=== PATIENT | female | born 1985 ===

== ENCOUNTER → 2018-01-31 | Outpatient (CLI) | payer OTHER ==
--- NOTE | 2018-01-31 11:09 | Ultrasound Report ---
ULTRASOUND ABDOMEN COMPLETE ULTRASOUND PELVIC LIMITED INDICATION: Other microscopic hematuria. COMPARISON: None similar. FINDINGS: Abdominal sonography demonstrates slight diffuse hepatic coarsening. Grossly preserved contours without focal suspicious lesions or biliary dilatation. No gallstones, pericholecystic fluid or positive sonographic Hamilton's sign. Gallbladder wall thickness is 2.6 mm. CBD caliber is 1.8 mm. Homogenous spleen, 11.4 cm in length. No ascites. Normal visualized pancreas, though head and tail partly obscured due to bowel gas. Normal IVC. Nonaneurysmal abdominal aorta. No hydronephrosis. Right kidney is 10.3 x 4.5 x 4.9 cm with cortical thickness of 0.9 cm. Left kidney estimated at 2.5 x 4.5 x 6 cm with cortical thickness of 1.4 cm. Limited pelvic sonography demonstrates well distended, unremarkable urinary bladder. CONCLUSION: No acute sonographic abnormality, as described. Thank you for the opportunity to participate in this patient's care.
== END | disposition home or self-care (01) ==
LOC: US 09:08
PROVIDERS: ATTEND Nurse Practitioner Family
DX: R31.29 Other microscopic hematuria (principal)
CPT/HCPCS: 76700; 76857

== ENCOUNTER 2019-01-09 18:27 | Inpatient (IN) | payer OTHER, MEDICAID ==
[2019-01-09] MEDS ORDERED: BICITRA PO ONE (18:40)
[2019-01-09] MEDS ORDERED: REGLAN IV ONE (18:40)
[2019-01-09] MEDS ORDERED: PEPCID IV ONE (18:40)
--- NOTE | 2019-01-09 18:46 | History and Physical Report ---
History of Present Illness Date of examination: 01/09/19 Date of admission: 01/09/19 18:27 Chief complaint: Repeat C Section History of present illness: Pt is a 33yo BF EDC 01/12/19; EGA 39 4/7 weeks presents for a Repeat C Section. She received care at [facility] since 11 weeks and co-managed by [facility] for Previous C Section and AMA. records are available and GBS is Negative. Past History Past Medical History: no pertinent history Past Surgical History: section Social history: no significant social history, - Obstetrical History Expected Date of Delivery: 01/12/19 Actual Gestation: 39 Week(s) 4 Day(s) Medications and Allergies Home Medications Medication Instructions Recorded Confirmed Last Taken Type Ferrous Sulfate [Feosol 325 MG tab] 325 mg PO BID #60 tablet 01/09/19 Unknown Rx HYDROcodone/APAP 5-325 [[place] 1 each PO Q6HR PRN #30 tablet 01/09/19 Unknown Rx 5/325] Ibuprofen [Motrin] 800 mg PO Q8HR PRN #30 tablet 01/09/19 Unknown Rx Vit-Fe Fumar-FA [ 1 tab PO QDAY #30 tablet 01/09/19 Unknown Rx Vitamin] Review of Systems All systems: negative - Physical Exam Breasts: Positive: deferred Cardiovascular: Regular rate Lungs: Positive: Clear to auscultation Abdomen: Positive: normal appearance Genitourinary (Female): Positive: normal external genitalia Vagina: Positive: normal moisture Uterus: Positive: enlarged Extremities: Positive: normal - Obstetrical FHR: category 1 Uterine Contraction Monitor Mode: External Uterine Contraction Pattern: Absent Results Result Diagrams: 01/09/19 20:11 All other labs normal. Assessment and Plan - Patient Problems (1) 39 weeks gestation of Onset Date: 01/09/19 Current Visit: Yes Status: Acute Plan to address problem: A: IUP @ 39 5/7 weeks Previous C Section P: Admit to L&D for Repeat C Section. (2) Previous delivery affecting Onset Date: 01/09/19 Current Visit: Yes Status: Acute
[2019-01-09] MEDS ORDERED: LACTATED RINGERS 1,000 ML IV SCH (19:00)
[2019-01-09] MEDS ORDERED: PITOCin/NS 20 UNIT/1000ML DRIP 20 UNITS/1,000 ML BAG IV SCH ×2 (19:00→23:00)
[2019-01-09] MEDS ORDERED: ANCEF/STERILE WATER 2 GM/20 ML 2 GM/20 ML SYRINGE IV NR (19:00)
--- NOTE | 2019-01-09 19:38 | Anesthesia Consultation ---
Anesthesia Consult and Med Hx Date of service: 01/09/19 - Airway ROM Head & Neck: Adequate Mental/Hyoid Distance: Adequate Mallampati Class: Class II Intubation Access Assessment: Probably Good - Pulmonary Exam CTA: Yes - Cardiac Exam Cardiac Exam: RRR - Pre-Operative Health Status ASA Pre-Surgery Classification: ASA2 Proposed Anesthetic Plan: Spinal - Pulmonary Hx Asthma: No - Cardiovascular System Hx Hypertension: No
--- NOTE | 2019-01-09 19:38 | Anesthesia Day of Surgery ---
Anesthesia Day of Surgery - Day of Surgery Patient Examined: Yes Patient H&P Reviewed: Yes Patient is NPO: Yes
[2019-01-09] MEDS ORDERED: MARCAINE 0.5% INFILTRATI ONE (19:44)
[2019-01-09] MEDS ORDERED: DEXMEDETOMIDINE IV ONE (19:44)
[2019-01-09 20:33] LABS: Basophils % (Auto) 0.1 % (0.0-1.8); Eosinophils % (Auto) 0.2 % (0.0-4.3); Hematocrit 35.3 % (30.3-42.9); Hemoglobin 11.6 gm/dl (10.1-14.3); Lymphocytes # (Auto) 1.2 K/mm3 (1.2-5.4); Lymphocytes % (Auto) 12.2 % (13.4-35.0); Mean Corpuscular HGB Conc 33 % (30-34); Mean Corpuscular Volume 75 fl (79-97); Monocytes # (Auto) 0.5 K/mm3 (0.0-0.8); Monocytes % (Auto) 5.4 % (0.0-7.3); Platelet Count 252 K/mm3 (140-440); Red Blood Count 4.69 M/mm3 (3.65-5.03); Red Cell Distribution Width 17.6 % (13.2-15.2)
[2019-01-09] MEDS ORDERED: NEO SYNEPHRINE ONE (21:08)
[2019-01-09] MEDS ORDERED: ZOFRAN ONE (21:08)
[2019-01-09] MEDS ORDERED: WATER FOR IRRIG STERILE IR ONE (21:12)
[2019-01-09] MEDS ORDERED: NACL 0.9% IR ONE (21:12)
[2019-01-09] MEDS ORDERED: LACTATED RINGERS 1,000 ML ONE (21:33)
--- NOTE | 2019-01-09 22:15 | Operative Report ---
Operative Report Operative Report: Date of procedure: 01/09/2019 Pre-operative diagnosis: 1. Intrauterine at 39-4/7 weeks 2. Previ ous Post-operative diagnosis: Same Procedure name(s): Repeat low transverse section Surgeon: Karson Ledbetter MD Account Manager Sales Representative: None Anesthesia: Spinal anesthesia by Juan Sunshine CRNA EBL: 500 mL's Findings: A 3459 g male Apgars 8 at 1 minute and 9 at 5 minutes. Clear amniotic fluid. Normal uterus with extensive upper uterine adhesions adherent to the abdominal wall. Normal tubes and ovaries bilaterally. Procedure: After the patient was prepped and draped in usual sterile fashion, and after satisfactory level of epidural anesthesia was obtained, the skin knife was used to make a transverse skin incision through the previous skin scar. The incision was excised down to layer of the fascia, which was nicked in the midline and extended laterally using the Bovie cautery. The rectus muscles were dissected off the rectus fascia both superiorly and inferiorly. The rectus bellies in the midline, and the peritoneum was entered under direct visualization. The peritoneal incision was extended superiorly and inferiorly. A bladder flap was created and the bladder blade was then placed. The uterus was scored in a curvilinear linear fashion, entered in the midline revealing clear amniotic fluid. The infant's head was delivered onto the surgical field, and the oropharynx and nasopharynx were bulb suctioned. The rest of the infant's body was delivered, cord was doubly clamped and cut and the infant was handed to the waiting respiratory team. The placenta was manually removed from the uterus, however the uterus could not be removed from his normal anatomical position due to extensive upper uterine adhesions. After gentle uterine lavage, the incision was inspected and found to be without extensions. It was then closed in 2 layers using 0 Vicryl suture in a running interlocking fashion, the second layer imbricating the first. After good hemostasis was achieved, copious amounts or irrigation was performed, and the gutters were suctioned free of blood and blood clots. The Tisseel sealant was sprayed across the uterine incision. After excellent hemostasis assured, the peritoneum was re- approximated using 3-0 Vicryl suture in a running interlocking fashion, and then the rectus muscles were re-approximated using 3-0 Vicryl suture in a [id number] configuration. The fascia was then re-approximated using 0 Vicryl suture in running interlocking fashion. The subcutaneous layer was made hemostatic using Bovie cautery, the Tisseel sealant was sprayed across the fascial incision and the skin edges re-approximated using 4-0 Vicryl suture in a sub-cuticular fashion. Patient tolerated the procedure well was transported to recovery in stable condition.
[2019-01-09] MEDS ORDERED: LANSINOH TP PRN (22:20)
[2019-01-09] MEDS ORDERED: ZOFRAN IV PRN ×2 (22:20→22:25)
[2019-01-09] MEDS ORDERED: TYLENOL PO PRN (22:20)
[2019-01-09] MEDS ORDERED: SENOKOT PO PRN (22:20)
[2019-01-09] MEDS ORDERED: MILK OF MAGNESIA PO PRN (22:20)
[2019-01-09] MEDS ORDERED: PHENERGAN PR PRN ×2 (22:20→22:25)
[2019-01-09] MEDS ORDERED: NARCAN 0.4 MG/1 ML IV PRN ×2 (22:20→22:25)
[2019-01-09] MEDS ORDERED: MYLICON PO PRN (22:20)
[2019-01-09] MEDS ORDERED: TUCKS PAD TP PRN (22:20)
[2019-01-09] MEDS ORDERED: NORCO 5/325 PO PRN (22:20)
--- NOTE | 2019-01-09 22:23 | Post Anesthesia Evaluation ---
- Post Anesthesia Evaluation Patient Participated: Yes Airway Patent: Yes Stable Respiratory Function: Yes Nausea/Vomiting: No Temp > 96.8F: Yes Pain Manageable: Yes Adequeate Hydration: Yes Anesthesia Complications: No Block Receding Appropriately: Yes
[2019-01-09] MEDS ORDERED: NUBAIN IV PRN (22:25)
[2019-01-09] MEDS ORDERED: PHENERGAN PO PRN (22:25)
[2019-01-09] MEDS ORDERED: DILAUDID IV PRN ×2 (22:25)
[2019-01-09] MEDS ORDERED: D5LR 1,000 ML IV SCH (23:00)
[2019-01-09] MEDS ORDERED: SODIUM CHLORIDE FLUSH SYRINGE 10 ML IV PRN ×2 (23:00)
[2019-01-10] MEDS ORDERED: TORADOL IV SCH
[2019-01-10] MEDS: TORADOL IV PRN ×2 (01:50→12:00)
[2019-01-10] MEDS: ANCEF/NS 1 GM/50 ML 1 GM/50 ML BAG IV SCH ×2 (04:30→11:59)
[2019-01-10] MEDS: PRENATAL VITAMIN PO SCH (09:48)
[2019-01-10] MEDS: FEOSOL PO SCH (09:48)
[2019-01-10] MEDS: TYLENOL PO SCH ×4 (12:20→22:27)
[2019-01-10 14:09] LABS: Hematocrit 33.2 % (30.3-42.9); Hemoglobin 10.9 gm/dl (10.1-14.3)
[2019-01-10] MEDS: PERCOCET 5/325 PO PRN ×2 (16:28→22:21)
--- NOTE | 2019-01-10 17:40 | Progress Note ---
Assessment and Plan - Patient Problems (1) Postcesarean section Current Visit: Yes Status: Acute Plan to address problem: Continue observation and pain control. Subjective - Subjective Date of service: 01/10/19 Principal diagnosis: delivery Interval history: S/P day 1. Patient reports: appetite normal, voiding normally, pain well controlled, flatus, no dizzy ambulation, no appetite poor, no nauseated Objective - Vital Signs Latest vital signs: Vital Signs Temp Pulse Resp BP BP Pulse Ox 01/10/19 17:21 98.7 F 86 18 92/56 100 01/10/19 14:06 98.3 F 91 H 18 104/64 98 01/10/19 08:11 97.9 F 76 17 98/57 99 01/10/19 06:44 18 01/10/19 04:00 98.8 F 69 18 99/69 01/10/19 01:50 18 01/09/19 23:15 98.9 F 71 15 94/49 99 01/09/19 23:00 78 24 90/45 100 01/09/19 22:45 78 14 83/56 100 01/09/19 22:30 73 23 88/49 98 01/09/19 22:25 68 20 95/53 98 01/09/19 22:20 74 23 91/46 99 01/09/19 22:15 98.3 F 73 22 85/41 99 Intake and Output 01/10/19 01/10/19 01/10/19 07:59 15:59 23:59 Intake Total 50 2080 Output Total 300 400 Balance -250 1680 Intake: IV 50 ANCEF/NS 1 GM/50 ML 1 gm 50 In 50 ml @ 100 mls/hr IV Q8H [facility] Rx#:[id number] Oral 2080 Output: Urine 300 400 Indwelling Catheter 300 400 Other: Total, Intake Amount 920 Total, Output Amount 300 400 Voiding Method Toilet # Voids 1 Indwelling Catheter 1 - Exam Breasts: Present: deferred Abdomen: Present: soft, other (Pfannenstiel incision healing by primary intention.) Extremities: Present: normal. Absent: tenderness, edema Incision: Present: normal, dry, intact. Absent: erythematous, suppurative, edematous - Labs Labs: Abnormal lab results 01/09/19 Range/Units 20:11 MCV 75 L (79-97) fl MCH 25 L (28-32) pg RDW 17.6 H (13.2-15.2) % Lymph % (Auto) 12.2 L (13.4-35.0) % Seg Neutrophils % 82.1 H (40.0-70.0) % Seg Neutrophils # 8.0 H (1.8-7.7) K/mm3
[2019-01-10] MEDS ORDERED: M-M-R II VACCINE SUB-Q ONE (22:23)
[2019-01-11] MEDS: TYLENOL PO SCH (04:05)
[2019-01-11] MEDS ORDERED: BOOSTRIX IM ONE (06:00)
--- NOTE | 2019-01-11 07:11 | Progress Note ---
Assessment and Plan A: POD#2 s/p Repeat section Pain well controlled Stable P: Routine PP/PO orders Encouraged ambulation in room Anticipate discharge home 24-48 hrs Subjective - Subjective Date of service: 01/11/19 Principal diagnosis: POD#2 s/p Repeat c/s 01/09/19 Interval history: See H&P and operative report Patient reports: appetite normal, voiding normally, pain well controlled, fla tus, ambulating normally, no bowel movement : doing well Objective - Vital Signs Latest vital signs: Vital Signs Temp Pulse Resp BP BP Pulse Ox 01/11/19 01:59 98.1 F 87 18 106/63 106/63 98 01/10/19 22:21 18 01/10/19 20:54 98.9 F 91 H 20 106/66 100 01/10/19 17:21 98.7 F 86 18 92/56 100 01/10/19 14:06 98.3 F 91 H 18 104/64 98 01/10/19 08:11 97.9 F 76 17 98/57 99 Intake and Output 01/10/19 01/10/19 01/11/19 15:59 23:59 07:59 Intake Total 2080 2080 240 Output Total 400 Balance 1680 2080 240 Intake: Oral 2080 1840 Intake, Free Water 240 240 Output: Urine 400 Indwelling Catheter 400 Other: Total, Intake Amount 920 920 Total, Output Amount 400 Voiding Method Toilet Toilet # Voids 1 1 Indwelling Catheter 1 1 Void 2 1 - Exam Breasts: Present: normal Cardiovascular: Present: Regular rate, Normal S1, Normal S2, No murmurs Lungs: Present: Clear to auscultation, Normal air movement Abdomen: Present: normal appearance, soft, tenderness (as expected post-op), normal bowel sounds. Absent: distention Vulva: both: normal Uterus: Present: firm, fundal height at umbilicus Extremities: Present: normal Deep Tendon Reflex Grade: Normal +2 Incision: Present: normal (Pressure dressing removed. LTI closed with SQ sutures and steri strips CDI. No active drainage. ), dry, intact
--- NOTE | 2019-01-11 07:12 | Discharge Summary ---
Providers - Providers Date of Admission: 01/09/19 18:27 Date of discharge: 01/12/19 Attending physician: ROSANA SLATER Primary care physician: ROSANA SLATER Hospitalization Reason for admission: IUP at term Delivery: Procedure: repeat low transverse Incision: normal (LTI clsoed with SQ sutures and steri strips CDI, no drainage. ), dry, intact Other procedures: none complications: none Discharge diagnosis: IUP at term delivered Condition at discharge: Good Disposition: DC-01 TO HOME OR SELFCARE Plan - Discharge Medications Prescriptions: Ferrous Sulfate [Feosol 325 MG tab] 325 mg PO BID #60 tablet Ibuprofen [Motrin] 800 mg PO Q8HR PRN #30 tablet PRN Reason: Pain, Mild (1-3) HYDROcodone/APAP 5-325 [[place] 5/325] 1 each PO Q6HR PRN #30 tablet PRN Reason: Pain Vit-Fe Fumar-FA [ Vitamin] 1 tab PO QDAY #30 tablet - Provider Discharge Summary Activity: routine, no sex for 6 weeks, no heavy lifting 4 weeks, no strenuous exercise Diet: routine Instructions: routine Additional instructions: [] Smoking cessation referral if applicable(refer to patient education folder for contact #) [] Refer to [facility] Booklet Call your doctor immediately for: * Fever > 100.5 * Heavy vaginal bleeding ( >1 pad per hour) * Severe persistent headache * Shortness of breath * Reddened, hot, painful area to leg or breast * Drainage or odor from incision. * Keep incision clean and dry at all times and follow doctor's instructions regarding bathing/showering - Follow up plan Follow up: ROSANA SLATER MD [Primary Care Provider] - 7 Days
[2019-01-11] MEDS: PERCOCET 5/325 PO PRN (09:06)
[2019-01-11] MEDS: PRENATAL VITAMIN PO SCH (11:31)
[2019-01-11] MEDS: FEOSOL PO SCH (11:31)
[2019-01-11] MEDS: IBUPROFEN PO PRN (16:35)
[2019-01-12] MEDS: IBUPROFEN PO PRN ×2 (00:07→10:05)
[2019-01-12] MEDS: PRENATAL VITAMIN PO SCH (10:05)
[2019-01-12] MEDS: FEOSOL PO SCH (10:06)
[2019-01-12 12:30] VITALS: BP 109/72
== END 2019-01-12 12:57 | disposition home or self-care (01) | DRG 788 ==
LOC: APU 18:27 → OB 23:59
PROVIDERS: ADMIT Obstetrics & Gynecology; ATTEND Obstetrics & Gynecology
PROC: 10D00Z1 Extraction of Products of Conception, Low, Open Approach (ICD-10-PCS; principal; 2019-01-09)
PROC: 3E0234Z Introduction of Serum, Toxoid and Vaccine into Muscle, Percutaneous Approach (ICD-10-PCS; 2019-01-10)
PROC: 3E0234Z Introduction of Serum, Toxoid and Vaccine into Muscle, Percutaneous Approach (ICD-10-PCS; 2019-01-11)
DX: O34.211 Maternal care for low transverse scar from previous cesarean delivery (principal); Z37.0 Single live birth; Z3A.39 39 weeks gestation of pregnancy; Z23 Encounter for immunization; N73.6 Female pelvic peritoneal adhesions (postinfective); O99.89 Other specified diseases and conditions complicating pregnancy, childbirth and the puerperium
CPT/HCPCS: 36415; 85014; 85018; 85025; 86850; 86900; 86901; 90715; G0378; J0690; J1170; J1885; J2370; J2405; J2590; J2765; J3490; J7120; J7121